=== PATIENT | female | born 1985 | race Caucasian/White ===

== ENCOUNTER 2017-12-30 18:33 | Emergency (ER) | payer MEDICAID ==
[2016-05-04 16:13] VITALS: Ht 177.8 cm; Wt 121.6 kg
[~2017-12-30] VITALS: Ht 177.8 cm; Wt 121.6 kg
[~2017-12-30 18:33] MED LIST: ACE3 PO; AMO500 PO; AMOX-362 PO; AMOX-559 PO; BENZ200C38 PO; CALC-515 PO; CEP500 PO; CEPH500T7 PO; FLU20 PO; GUALA600 PO; HYDR-2954 PO; HYDR-4309 PO; IBU600 PO; IBUP600T22 PO; Ibuprofen PO; KET10 PO; LOR5/325 PO; MEDR150D IM; MET2 PO; METHERGINE; NIF10 PO; NO RTN MEDS; ONDA4TAB PO; ONDA4TAB97 PO; ONDA8TAB98 PO; PER PO; PREN-127 PO; PREN-161 PO; PREN-85 PO; TRAZ-133 PO
--- NOTE | 2017-12-30 18:47 | ER Report ---
History and Physical Time Seen By MD: 18:47 Hx. of Stated Complaint: PT REPORTS NAUSEA PAST 2 DAYS, REPORS DIZZINESS THAT STARTED ~20MINS AGO, PT STATES SHE FELT LIKE SHE WAS GOING TO PASS OUT. PT 32 WKS HPI/ROS CHIEF COMPLAINT: dizziness HISTORY OF PRESENT ILLNESS: This is a 32 year old female. She is about 32 weeks along with her . No problems with the . She is dizzy and has been nauseated for 2 days. The dizziness is not a near syncope or vertigo, but more of feeling off balance. Dizziness started today, about 20 minutes ago. She did not feel like she was going to pass out, but felt like she might fall over if she was not holding onto something. She has no headache. No vision changes. No chest pain. No shortness of breath. Her bowel are normal. No problems urinating. Has nausea, but no vomiting. She continues to feel baby moving and has no leakage of fluid, vaginal bleeding or cramping pain. Allergies: Coded Allergies: No Known Drug Allergies (Unverified , 09/04/17) Uncoded Allergies: CAT BACTERIA (Allergy, Unknown, 08/04/16) "CAT SCRATCH FEVER" Home Meds Active Scripts Ondansetron Hcl (ZOFRAN) 4 Mg Tablet, 4 MG PO Q8H for Nausea, #15 TAB 0 Refills Prov:CICI KEN MD 09/04/17 Cephalexin 500 Mg Tab (KEFLEX 500 MG TAB) 500 Mg Tablet, 500 MG PO Q6H, #28 TAB 0 Refills TAKE ONE TABLET BY MOUTH EVERY SIX HOURS Prov:CICI KEN MD 09/04/17 Reviewed Nurses Notes: Yes Hx Smoking: Yes Smoking Status: Former Smoker Exposure to Second Hand Smoke?: No Hx Substance Use Disorder: No Hx Alcohol Use: No Constitutional Vital Sign - Last 24 Hours 12/30/17 12/30/17 18:34 20:40 Temp 97.9 Pulse 83 82 Resp 16 16 B/P (MAP) 125/69 100/59 (73) Pulse Ox 94 92 O2 Delivery Room Air Room Air Physical Exam General Appearance: The patient is alert. No acute distress. Eyes: Pupils are equal, round. Reactive to light. No pallor, injection or icterus. Extraocular movements are intact. ENT: Mucous membranes are moist. Normal oral mucosa. Posterior oropharynx is normal. Normal tympanic membranes and canals. Neck: Supple and non tender. No lymphadenopathy. Respiratory: Breathing easily and unlabored. Lungs are clear to auscultation. Cardiovascular: Regular rate and rhythm. No murmurs, gallops or rubs. Normal capillary refill. Trace ankle edema bilaterally. Gastrointestinal: Abdomen is soft, nontender. Nondistended. Normal active bowel sounds. No costovertebral angle tenderness with percussion. Neurological: Alert and oriented x3. Cranial nerves II through XII show no acute deficits on my exam. No focal neurologic deficits in the extremities. Skin: Warm and dry. DIFFERENTIAL DIAGNOSIS: After history and physical exam, differential diagnosis was considered for dizziness including but not limited to urinary tract infection, orthostatic causes including dehydration, and blood loss. Medical Decision Making Data Points Result Diagram: 12/30/17185112/30/171851 Laboratory Hematology Test 12/30/17 18:52 12/30/17 20:10 Red Blood Count 4.82 M/uL (4.17-5.56) Mean Corpuscular Volume 78.3 fL (80.0-96.0) Mean Corpuscular Hemoglobin 26.5 pg (26.0-33.0) Mean Corpuscular Hemoglobin Concent 33.9 g/dL (32.0-36.0) Red Cell Distribution Width 14.9 % (11.5-14.5) Mean Platelet Volume 8.9 fL (7.2-11.1) Neutrophils (%) (Auto) 75.7 % (39.4-72.5) Lymphocytes (%) (Auto) 15.1 % (17.6-49.6) Monocytes (%) (Auto) 7.5 % (4.1-12.4) Eosinophils (%) (Auto) 1.1 % (0.4-6.7) Basophils (%) (Auto) 0.6 % (0.3-1.4) Nucleated RBC Relative Count (auto) 0.0 /100WBC Neutrophils # (Auto) 8.1 K/uL (2.0-7.4) Lymphocytes # (Auto) 1.6 K/uL (1.3-3.6) Monocytes # (Auto) 0.8 K/uL (0.3-1.0) Eosinophils # (Auto) 0.1 K/uL (0.0-0.5) Basophils # (Auto) 0.1 K/uL (0.0-0.1) Nucleated RBC Absolute Count (auto) 0.01 K/uL Sodium Level 132 mmol/L (137-145) Potassium Level 3.9 mmol/L (3.5-5.0) Chloride Level 100 mmol/L (98-107) Carbon Dioxide Level 23 mmol/L (22-31) Blood Urea Nitrogen 9 mg/dl (7-18) Creatinine 0.70 mg/dl (0.52-1.04) Glomerular Filtration Rate Calc > 60.0 Random Glucose 67 mg/dl (75-110) Calcium Level 8.4 mg/dl (8.4-10.2) Total Bilirubin 0.6 mg/dl (0.2-1.3) Aspartate Amino Transf (AST/SGOT) 16 U/L (0-35) Alanine Aminotransferase (ALT/SGPT) 24 U/L (0-56) Alkaline Phosphatase 101 U/L (0-126) Total Protein 6.7 gm/dl (6.3-8.2) Albumin 3.3 g/dl (3.5-5.0) Urine Color Yellow Urine Clarity Clear Urine pH 6.0 pH (4.8-9.5) Urine Specific [place] 1.006 Urine Protein Negative mg/dL (NEGATIVE) Urine Glucose (UA) Negative mg/dL (NEGATIVE) Urine Ketones Negative mg/dL (NEGATIVE) Urine Blood Negative (NEGATIVE) Urine Nitrite Negative (NEGATIVE) Urine Bilirubin Negative (NEGATIVE) Urine Urobilinogen Negative mg/dL (0.2-1.9) Urine Leukocyte Esterase Moderate (NEGATIVE) Urine RBC 3 /HPF (0-2/HPF) Urine WBC 1 /HPF (0-5/HPF) Urine Squamous Epithelial Cells Many /LPF (</=FEW) Urine Bacteria Few /HPF (NONE-FEW) Urine Mucus None /HPF (NONE-FEW) Chemistry Test 12/30/17 18:52 12/30/17 20:10 White Blood Count 10.7 k/uL (4.5-11.0) Red Blood Count 4.82 M/uL (4.17-5.56) Hemoglobin 12.8 g/dL (12.0-16.0) Hematocrit 37.7 % (34.0-47.0) Mean Corpuscular Volume 78.3 fL (80.0-96.0) Mean Corpuscular Hemoglobin 26.5 pg (26.0-33.0) Mean Corpuscular Hemoglobin Concent 33.9 g/dL (32.0-36.0) Red Cell Distribution Width 14.9 % (11.5-14.5) Platelet Count 117 K/uL (150-450) Mean Platelet Volume 8.9 fL (7.2-11.1) Neutrophils (%) (Auto) 75.7 % (39.4-72.5) Lymphocytes (%) (Auto) 15.1 % (17.6-49.6) Monocytes (%) (Auto) 7.5 % (4.1-12.4) Eosinophils (%) (Auto) 1.1 % (0.4-6.7) Basophils (%) (Auto) 0.6 % (0.3-1.4) Nucleated RBC Relative Count (auto) 0.0 /100WBC Neutrophils # (Auto) 8.1 K/uL (2.0-7.4) Lymphocytes # (Auto) 1.6 K/uL (1.3-3.6) Monocytes # (Auto) 0.8 K/uL (0.3-1.0) Eosinophils # (Auto) 0.1 K/uL (0.0-0.5) Basophils # (Auto) 0.1 K/uL (0.0-0.1) Nucleated RBC Absolute Count (auto) 0.01 K/uL Glomerular Filtration Rate Calc > 60.0 Calcium Level 8.4 mg/dl (8.4-10.2) Total Bilirubin 0.6 mg/dl (0.2-1.3) Aspartate Amino Transf (AST/SGOT) 16 U/L (0-35) Alanine Aminotransferase (ALT/SGPT) 24 U/L (0-56) Alkaline Phosphatase 101 U/L (0-126) Total Protein 6.7 gm/dl (6.3-8.2) Albumin 3.3 g/dl (3.5-5.0) Urine Color Yellow Urine Clarity Clear Urine pH 6.0 pH (4.8-9.5) Urine Specific [place] 1.006 Urine Protein Negative mg/dL (NEGATIVE) Urine Glucose (UA) Negative mg/dL (NEGATIVE) Urine Ketones Negative mg/dL (NEGATIVE) Urine Blood Negative (NEGATIVE) Urine Nitrite Negative (NEGATIVE) Urine Bilirubin Negative (NEGATIVE) Urine Urobilinogen Negative mg/dL (0.2-1.9) Urine Leukocyte Esterase Moderate (NEGATIVE) Urine RBC 3 /HPF (0-2/HPF) Urine WBC 1 /HPF (0-5/HPF) Urine Squamous Epithelial Cells Many /LPF (</=FEW) Urine Bacteria Few /HPF (NONE-FEW) Urine Mucus None /HPF (NONE-FEW) Urinalysis Test 12/30/17 20:10 Urine Color Yellow Urine Clarity Clear Urine pH 6.0 pH (4.8-9.5) Urine Specific [place] 1.006 Urine Protein Negative mg/dL (NEGATIVE) Urine Glucose (UA) Negative mg/dL (NEGATIVE) Urine Ketones Negative mg/dL (NEGATIVE) Urine Blood Negative (NEGATIVE) Urine Nitrite Negative (NEGATIVE) Urine Bilirubin Negative (NEGATIVE) Urine Urobilinogen Negative mg/dL (0.2-1.9) Urine Leukocyte Esterase Moderate (NEGATIVE) Urine RBC 3 /HPF (0-2/HPF) Urine WBC 1 /HPF (0-5/HPF) Urine Squamous Epithelial Cells Many /LPF (</=FEW) Urine Bacteria Few /HPF (NONE-FEW) Urine Mucus None /HPF (NONE-FEW) EKG/Imaging EKG Interpretation 12 lead EKG: Rhythm: normal sinus rhythm, rate 79 [place]: normal QRS: normal ST segments: normal ED Course/Re-evaluation Clinical Indication for ER IV: Hydration, IV Access ED Course heart tones 155 and baby is moving. labs unremarkable. Urinalysis with some non-specific changes, urine culture ordered. Patient feels better with a liter of normal saline. Normal vital signs. No proteinuria. No headache. Discussed with Dr. Sandhu. Patient discharged home and has an appointment on Monday with her [facility] L[facility]ER. Decision to Disposition Date: Dec 30, 2017 Decision to Disposition Time: 20:35 Depart Departure Latest Vital Signs Vital Signs Date Time Temp Pulse Resp B/P (MAP) Pulse Ox O2 Delivery O2 Flow Rate FiO2 12/30/17 20:40 82 16 100/59 (73) 92 Room Air 12/30/17 18:34 97.9 Impression: Primary Impression: Dizziness Condition: Improved Disposition: HOME OR SELF-CARE Patient Instructions: Dizziness (ED) Additional Instructions: Rest and increase fluid intake over the weekend. Keep you appointment on Monday with [facility] L[facility]ER. YEN GREENFIELD MD Dec 30, 2017 18:47
[2017-12-30] MEDS ORDERED: NS(*) 0.9% 1000 ML BAG 1,000 ML IV ONE (19:00)
[2017-12-30] MEDS ORDERED: ONDANSETRON 4 MG/2 ML VIAL IVP ONE (19:00)
[2017-12-30 19:16] LABS: PLATELET COUNT, AUTOMATED 117 K/uL (150-450)
[2017-12-30 20:40] VITALS: BP 100/59
--- NOTE | 2017-12-30 22:34 | EKG ---
FACILITY: [facility] [place] PATIENT NAME: DANIELLE VALENCIA : [id number] MR: [id number] V: [id number] EXAM DATE: ORDERING PHYSICIAN: YEN GREENFIELD TECHNOLOGIST: COLEEN Test Reason : DIZZY Blood Pressure : / mmHG Vent. Rate : 079 BPM Atrial Rate : 079 BPM P-R Int : 150 ms QRS Dur : 084 ms QT Int : 376 ms P-R-T Axes : 037 061 016 degrees QTc Int : 431 ms Normal sinus rhythm with sinus arrhythmia Normal ECG When compared with ECG of 04-SEP-2017 08:31, Previous ECG has undetermined rhythm, needs review Confirmed by MANUEL MCCONNELL ([id number]) on 12/31/2017 6:28:35 AM Referred By: SUELLEN Confirmed By:MANUEL MCCONNELL
== END 2017-12-30 20:46 | disposition home or self-care (01) ==
LOC: ER 18:48
DX: O26.893 Other specified pregnancy related conditions, third trimester (principal); Z3A.32 32 weeks gestation of pregnancy; I49.9 Cardiac arrhythmia, unspecified
CPT/HCPCS: 81001; 85025; 87088; 93005; 96361; 96374; 99284; J2405; J7030; 82040; 82247; 82310; 82374; 82435; 82565; 82947; 84075; 84132; 84155; 84295; 84450; 84460; 84520

== ENCOUNTER 2018-01-16 21:17 | Observation (INO) | payer MEDICAID ==
[~2018-01-16] VITALS: Ht 175.3 cm; Wt 121.6 kg
[2018-01-16] MEDS ORDERED: LR(*) 1000 ML BAG 1,000 ML IV PRN (21:21)
[2018-01-16 21:35] VITALS: BP 128/69; Ht 175.3 cm; Wt 121.6 kg
[2018-01-16] MEDS ORDERED: NIFEdipine 10 MG CAP PO PRN (22:20)
[2018-01-16] MEDS ORDERED: ACETAMINOPHEN 325 MG TAB PO PRN (22:20)
--- NOTE | 2018-01-16 22:31 | History & Physical ---
History of Present Illness Age of Patient: 32 : 9 Para or TPAL: 5 EDC per LMP: Feb 23, 2018 Estimated Gestational Age: 34.4 Chief Complaint contractions History of Present Illness The patient is a 32 year old 9 para 5 admitted at 34 4/7 weeks estimated gestational age with an estimated date of delivery 02/23 . Patient is admitted with complaint of contractions. No vaginal bleeding. Good movement and occasional contractions. She was evaluated for active labor. She denies fever, or urinary tract symptoms. She had an uncomplicated course prior to arrival. She has history of PTD. Her record was reviewed. History Allergies: Coded Allergies: No Known Drug Allergies (Unverified , 09/04/17) Uncoded Allergies: CAT BACTERIA (Allergy, Unknown, 08/04/16) "CAT SCRATCH FEVER" Social History: Unmarried but in monogamous relationship. No use of alcohol, tobacco, or illicit drugs. Med Rec Home Meds Active Scripts Ondansetron Hcl (ZOFRAN) 4 Mg Tablet, 4 MG PO Q8H for Nausea, #15 TAB 0 Refills Prov:CICI KEN MD 09/04/17 Cephalexin 500 Mg Tab (KEFLEX 500 MG TAB) 500 Mg Tablet, 500 MG PO Q6H, #28 TAB 0 Refills TAKE ONE TABLET BY MOUTH EVERY SIX HOURS Prov:CICI KEN MD 09/04/17 Review of Systems Constitutional: No Fever, No Weight Loss Neurological: No Syncope, No Confusion Eyes: No Vision Change, No Loss of Vision ENT: No Hearing Loss, No Sinus Congestion Cardiovascular: No Chest Pain, No Palpitations Respiratory: No Shortness of Breath, No Cough Gastrointestinal: No Nausea, No Vomiting Genitourinary: No Dysuria, No Hematuria Musculoskeletal: No Pain, No Sprain Psychiatric: No Depression, No Anxiety Exam General Exam Vital Signs Vital Signs Date Time Temp Pulse Resp B/P (MAP) Pulse Ox O2 Delivery O2 Flow Rate FiO2 01/16/18 21:35 97.9 81 16 128/69 (88) 94 Room Air General Apperance: Alert/Awake/No Acute Distress Neuro: No Gross deficits Eyes: Normal Extraocular Movement & Vison ENT: Normal Cardiovascular: Regular Rate and Rhythm Respiratory: Clear to Auscultation Abdomen: Soft, Non-Tender, Non-Distended, Gravid - Non-Tender Musculoskeletal: No Weakness/Pain Extremities: No Cyanosis,Clubbing or Edema, No Edema Integumentary: Skin Intact without Lesions or Rash Cervical Dialation: 2 Cervical Effacement (%): 50 Cervical Consistency: Moderate Cervical Position: Mid Station: -2 Presentation: Vertex Uterine Contractions(Q min): 4 Uterine Contraction Strength: Mild Fetus Heart Tones: 130 Heart Tone Variabilty: Moderate FHT Accelerations: 15X15 FHT Category: I Assessment and Plan Problems: (1) Threatened labor Status: Acute Assessment & Plan: will check FFn and monitor for cervical change. Will start procardia to see if able to slow frequency of contractions Copies to: MANUEL FLEMING MD Problem Qualifiers (1) Threatened labor: Trimester: third trimester Qualified Codes: O47.03 - False labor before 37 completed weeks of gestation, third trimester MANUEL FLEMING MD Jan 16, 2018 22:31
== END 2018-01-17 04:00 | disposition home or self-care (01) ==
LOC: OB 21:17
PROVIDERS: ADMIT Obstetrics & Gynecology; ATTEND Obstetrics & Gynecology
DX: O47.03 False labor before 37 completed weeks of gestation, third trimester (principal); Z3A.34 34 weeks gestation of pregnancy
CPT/HCPCS: 82731; G0378; G0379

== ENCOUNTER 2018-01-25 21:45 | Outpatient (CLI) | payer MEDICAID ==
[2018-01-16 21:35] VITALS: BMI 39.6
[2018-01-25] MEDS ORDERED: LR(*) 1000 ML BAG 1,000 ML IV PRN (21:49)
[2018-01-25] MEDS ORDERED: DLR(*) 1000 ML BAG 1,000 ML IV PRN (21:49)
[2018-01-25] MEDS ORDERED: ACET-1966 PO (22:51)
[2018-01-25] MEDS ORDERED: APAP/HYDROCODONE 325/5 TAB PO ONE (23:10)
== END 2018-01-25 23:45 | disposition home or self-care (01) ==
LOC: L&D 21:45 → OB 21:45 → UNDOADMIN 21:45 → OB 21:45 → UNDODISIN 23:45 → L&D 23:45 → EDSTATUS 01-26 13:01
PROVIDERS: ATTEND Student in an Organized Health Care Education/Training Program
DX: O26.893 Other specified pregnancy related conditions, third trimester (principal); Z3A.35 35 weeks gestation of pregnancy
CPT/HCPCS: 81001

== ENCOUNTER 2018-01-29 20:55 | Outpatient (CLI) | payer MEDICAID ==
[~2018-01-29] VITALS: Ht 177.8 cm; Wt 124.3 kg
[2018-01-29 18:00] VITALS: BP 129/67; Ht 177.8 cm; Wt 124.3 kg
[~2018-01-29 20:55] MED LIST changes: +ACET-1966 PO
[2018-01-29] MEDS ORDERED: LR(*) 1000 ML BAG 1,000 ML IV PRN (21:06)
== END 2018-01-29 22:28 | disposition home or self-care (01) ==
LOC: OB 20:55 → L&D 20:55 → OB 20:55 → UNDOADMOB 20:55 → UNDODISOB 22:28 → L&D 22:28 → EDSTATUS 02-02 08:34
PROVIDERS: ATTEND Student in an Organized Health Care Education/Training Program
DX: O47.03 False labor before 37 completed weeks of gestation, third trimester (principal); Z3A.36 36 weeks gestation of pregnancy
CPT/HCPCS: 99213; G0378; G0379

== ENCOUNTER 2018-01-31 16:04 | Outpatient (CLI) | payer MEDICAID ==
[2018-01-16 21:35] VITALS: Wt 122.5 kg
[2018-01-31] MEDS ORDERED: LR(*) 1000 ML BAG 1,000 ML IV PRN (16:54)
[2018-01-31 17:12] VITALS: BP 131/75
[2018-01-31] MEDS ORDERED: ACETAMINOPHEN 500 MG TAB PO PRN (17:15)
[2018-01-31 17:25] LABS: PLATELET COUNT, AUTOMATED 129 K/uL (150-450)
--- NOTE | 2018-01-31 18:38 | History & Physical ---
History of Present Illness Age of Patient: 32 : 9 Para or TPAL: 5035 EDC per LMP: Feb 23, 2018 Estimated Gestational Age: 36.5 Chief Complaint contractions History of Present Illness The patient is a 32 year old 9 para 5035 admitted at 36 5/7 weeks estimated gestational age with an estimated date of delivery 02/23/18 . Patient is admitted with complaint of contractions. No vaginal bleeding. Good movement and occasional contractions. She was evaluated for active labor. She had an uncomplicated course. Her record was reviewed. History Allergies: Coded Allergies: No Known Drug Allergies (Unverified , 09/04/17) Uncoded Allergies: CAT BACTERIA (Allergy, Unknown, 08/04/16) "CAT SCRATCH FEVER" Social History: Unmarried but in monogamous relationship. No use of alcohol, tobacco, or illicit drugs. Med Rec Home Meds Reported Medications Acetaminophen (TYLENOL) 325 Mg Tablet, 325 MG PO, TAB 01/25/18 Discontinued Scripts Ondansetron Hcl (ZOFRAN) 4 Mg Tablet, 4 MG PO Q8H for Nausea, #15 TAB 0 Refills Prov:CICI KEN MD 09/04/17 Cephalexin 500 Mg Tab (KEFLEX 500 MG TAB) 500 Mg Tablet, 500 MG PO Q6H, #28 TAB 0 Refills TAKE ONE TABLET BY MOUTH EVERY SIX HOURS Prov:CICI KEN MD 09/04/17 Review of Systems Constitutional: No Fever, No Weight Loss Neurological: No Syncope, No Confusion Eyes: No Vision Change, No Loss of Vision ENT: No Hearing Loss, No Sinus Congestion Cardiovascular: No Chest Pain, No Palpitations Respiratory: No Shortness of Breath Gastrointestinal: No Nausea, No Vomiting, No Diarrhea Genitourinary: No Dysuria, No Hematuria Musculoskeletal: No Pain, No Sprain Psychiatric: No Depression, No Anxiety Exam General Exam Vital Signs Vital Signs Date Time Temp Pulse Resp B/P (MAP) Pulse Ox O2 Delivery O2 Flow Rate FiO2 01/31/18 17:12 97.4 102 22 131/75 (93) 95 Room Air Cardiovascular: Regular Rate and Rhythm Respiratory: Clear to Auscultation Abdomen: Gravid - Non-Tender Extremities: No Edema Cervical Dialation: 3 (rn) Presentation: Vertex Uterine Contractions(Q min): 10 Fetus Heart Tones: 130 FHT Category: I Medical Decision Making Data Points Result Diagram: 01/31/18 1700 Assessment and Plan Problems: (1) Threatened labor Assessment & Plan: feeling pressure and contractions, no cervical change will continue observation possible latent labor Copies to: MANUEL FLEMING MD, JOHN MD Jan 31, 2018 18:38
== END 2018-01-31 20:38 | disposition home or self-care (01) ==
LOC: OB 16:04 → UNDOADMOB 16:04 → OB 16:04 → L&D 16:04 → UNDODISOB 20:38 → OB 20:38 → L&D 20:38 → EDSTATUS 02-01 11:39
PROVIDERS: ATTEND Obstetrics & Gynecology
DX: O47.03 False labor before 37 completed weeks of gestation, third trimester (principal); Z3A.36 36 weeks gestation of pregnancy
CPT/HCPCS: 81001; 85025; G0463; J7120; 99213; G0378; G0379

== ENCOUNTER 2018-02-07 18:57 | Observation (INO) | payer MEDICAID ==
[~2018-02-07] VITALS: Ht 177.8 cm; Wt 124.3 kg
[2018-02-07 20:30] VITALS: BP 116/75; Ht 177.8 cm; Wt 124.3 kg
--- NOTE | 2018-02-07 21:31 | History & Physical ---
History of Present Illness Age of Patient: 32 : 9 Para or TPAL: 5035 EDC per LMP: Feb 23, 2018 EDC per U/S: Feb 24, 2018 Estimated Gestational Age: 37.5 Chief Complaint Low back pain. History of Present Illness Patient is seen on the OB unit due to sudden onset of severe bilateral low back pain that started suddenly at about 0900 hours this morning, while she was standing from a sitting position. The pain is a constant, non-radiating dull pain that is occasionally sharp. No relief with application of heat. Her back was too sore to allow her partner to massage it. She denies fever, chills, constipation, diarrhea, melena, hematuria, dysuria, urinary urgency or frequency. She as had several recent bloody bowel movements, but is unsure whether she has hemorrhoids. Fetus remains active. History Patient's Blood Type: AB Positive Rubella Status: Immune Group B Strep Screen: Negative (01/16/18) Obstetrical History: Hx 5 normal term deliveries, also 2 first trimester spontaneous abortions and one early elective . Past Medical History: Eczema. Umbilical herniorrhaphy. Allergies: Coded Allergies: No Known Drug Allergies (Unverified , 09/04/17) Uncoded Allergies: CAT BACTERIA (Allergy, Unknown, 08/04/16) "CAT SCRATCH FEVER" Social History: Unmarried but in monogamous relationship. No use of alcohol, tobacco, or illicit drugs. Med Rec Home Meds Discontinued Reported Medications Acetaminophen (TYLENOL) 325 Mg Tablet, 325 MG PO, TAB 01/25/18 Review of Systems All Systems Reviewed/Normal: Yes, Except as Noted Musculoskeletal: Other (back pain as per present illness) Exam General Exam Vital Signs Vital Signs Date Time Temp Pulse Resp B/P (MAP) Pulse Ox O2 Delivery O2 Flow Rate FiO2 02/07/18 20:30 97.4 110 16 116/75 (89) 95 Room Air General Apperance: Other (lying in bed in distress from back pain) Neuro: No Gross deficits ENT: Normal, Moist Mucous Membranes Neck: No Masses Cardiovascular: Regular Rate and Rhythm Respiratory: No Respiratory Distress, Clear to Auscultation Abdomen: Gravid - Non-Tender : No CVA Tenderness Musculoskeletal: No Weakness/Pain, Other (back nontender, except for mild- moderate tenderness to palpation in midline and bilateral upper buttock regions) Extremities: Reflexes (2+/4 and symmetric), No Tender Calves Integumentary: Skin Intact without Lesions or Rash Psychological: Alert & Oriented X3 Fetus Heart Tones: 140 FHT Category: I Medical Decision Making VTE Prophylasis: Adult Pharmacological Contraindicati: Pt at Low Risk for VTE Mechanical Contraindications: Pt at Low Risk for VTE Assessment and Plan Problems: (1) Low back pain during in third trimester Status: Acute Assessment & Plan: I strongly recommended retrying application of heat, also massage and Tylenol. If she's not improving, then referral to Physical Therapy might be indicated. Her next office appointment is scheduled February 20, but she is urged to make an appointment earlier, in 5 to 7 days. (2) with 37 weeks completed gestation Status: Acute Copies to: NASIMA CURRY MD, MARK F MD Feb 07, 2018 21:31
== END 2018-02-07 21:38 | disposition home or self-care (01) ==
LOC: OB 18:57
PROVIDERS: ADMIT Obstetrics & Gynecology; ATTEND Obstetrics & Gynecology
DX: O26.893 Other specified pregnancy related conditions, third trimester (principal); Z3A.37 37 weeks gestation of pregnancy
CPT/HCPCS: 81001; G0378; G0379

== ENCOUNTER 2018-02-18 20:43 | Outpatient (CLI) | payer MEDICAID ==
[~2018-02-18] VITALS: Ht 177.8 cm; Wt 124.3 kg
[2018-02-18] MEDS ORDERED: FAMOTIDINE 20 MG TAB PO ONE (21:25)
[2018-02-18] MEDS ORDERED: METOCLOPRAMIDE 10 MG TAB PO ONE (21:25)
[2018-02-18] MEDS ORDERED: MAG HYD/AL HYD/SIMETH 30ML UDC PO ONE (21:25)
[2018-02-18 21:30] VITALS: BP 130/73; Ht 177.8 cm; Wt 124.3 kg
[2018-02-18] MEDS ORDERED: ONDANSETRON 4 MG ODT TABDP SL ONE (22:15)
[2018-02-18] MEDS ORDERED: PROMETHAZINE HCL 25 MG TAB PO ONE (23:00)
== END 2018-02-18 23:05 | disposition home or self-care (01) ==
LOC: INTOOBSV 20:43 → OB 20:43 → UNDOADMOB 20:43 → L&D 20:43 → UNDODISOB 23:05 → EDSTATUS 02-19 11:26
PROVIDERS: ATTEND Obstetrics & Gynecology
DX: O26.893 Other specified pregnancy related conditions, third trimester (principal); Z3A.39 39 weeks gestation of pregnancy
CPT/HCPCS: G0463; J8597; 99213; G0378; G0379

== ENCOUNTER 2018-02-22 05:18 | Inpatient (IN) | payer MEDICAID ==
[~2018-02-22] VITALS: Ht 177.8 cm; Wt 122.5 kg
[2018-02-22] MEDS ORDERED: FAMOTIDINE(*) 20MG/50ML PREMIX 50 ML IVPB PRN (05:21)
[2018-02-22] MEDS ORDERED: OXYTOCIN 30 UNIT/D5LR 500 ML 500 ML IV PRN (05:21)
[2018-02-22] MEDS ORDERED: METOCLOPRAMIDE 10 MG/2 ML SDV IVP PRN (05:25)
[2018-02-22] MEDS ORDERED: LIDOCAINE 1% LOCAL 300 MG/30ML INJ PRN (05:25)
[2018-02-22] MEDS ORDERED: ONDANSETRON 4 MG/2 ML VIAL IVP PRN ×2 (05:25→08:05)
[2018-02-22] MEDS ORDERED: LR(*) 1000 ML BAG 1,000 ML IV SCH (05:25)
[2018-02-22] MEDS ORDERED: MISOPROSTOL 25 MCG CAP PV PRN (05:25)
[2018-02-22] MEDS ORDERED: FLUSH 10 ML SYR IVP PRN (05:25)
[2018-02-22] MEDS ORDERED: DLR(*) 1000 ML BAG 1,000 ML IV PRN (05:25)
[2018-02-22] MEDS ORDERED: fentaNYL CITR 100 MCG/2 ML AMP IVP PRN (05:25)
[2018-02-22] MEDS ORDERED: TERBUTALINE SULF 1 MG/ML VIAL SUBQ PRN (05:25)
[2018-02-22] MEDS ORDERED: LIDOCAINE/SOD BICARB 8.4% SYR SC PRN (05:25)
[2018-02-22] MEDS ORDERED: ACETAMINOPHEN 500 MG TAB PO PRN (05:25)
[2018-02-22] MEDS ORDERED: cefOXitin/DEX(*) 2GM/50ML PREM 50 ML IVPB PRN (05:25)
[2018-02-22 06:11] VITALS: BP 118/69; Ht 177.8 cm; Wt 122.5 kg
[2018-02-22] MEDS ORDERED: PENICILLIN G 5 MILLUN/100 ML 100 ML IVPB ONE (06:35)
[2018-02-22 06:44] LABS: PLATELET COUNT, AUTOMATED 147 K/uL (150-450)
--- NOTE | 2018-02-22 07:42 | History & Physical ---
History of Present Illness Age of Patient: 32 : 9 Para or TPAL: 5035 EDC per LMP: Feb 23, 2018 EDC per U/S: Feb 26, 2018 Estimated Gestational Age: 39.6 Chief Complaint Elective induction of labor. History of Present Illness Admitted at term for elective induction of labor. has been complicated by low back pain the last few weeks of , treated conservatively with Tylenol, heat, and massage. She's also had a couple of visits to the hospital for false labor. Only other risk factor is maternal obesity. Oxytocin rate is presently at 6 milliunits/minute, with contractions Q 3 minutes, and pain 3-4/10. record is reviewed. History Patient's Blood Type: AB Positive Rubella Status: Immune Group B Strep Screen: Negative (01/16/18) Obstetrical History: 5 past uncomplicated vaginal deliveries between 37 and 39 weeks, although labor at 30 weeks with delivery at 37 weeks with the 7th . Spontaneous x2, and elective x1 at 10 weeks. Past Medical History: Hayfever, eczema. Umbilical hernia repair age 5. No transfusions. Allergies: Coded Allergies: No Known Drug Allergies (Unverified , 09/04/17) Uncoded Allergies: CAT BACTERIA (Allergy, Unknown, 08/04/16) "CAT SCRATCH FEVER" Social History: Unmarried but in monogamous relationship. No use of alcohol, tobacco, or illicit drugs. Med Rec Home Meds No Active Prescriptions or Reported Meds Exam General Exam Vital Signs Vital Signs Date Time Temp Pulse Resp B/P (MAP) Pulse Ox O2 Delivery O2 Flow Rate FiO2 02/22/18 06:11 97.8 87 16 118/69 (85) 95 Room Air General Apperance: Alert/Awake/No Acute Distress Neuro: No Gross deficits Eyes: Normal Extraocular Movement & Vison ENT: Normal, Moist Mucous Membranes Neck: No Masses Cardiovascular: Regular Rate and Rhythm Respiratory: No Respiratory Distress, Clear to Auscultation Abdomen: Gravid - Non-Tender : Normal, No CVA Tenderness Musculoskeletal: No Weakness/Pain Extremities: No Cyanosis,Clubbing or Edema, Reflexes (2+/4 and symmetric) Integumentary: Skin Intact without Lesions or Rash Psychological: Alert & Oriented X3, Appropriate Mood & Affect Cervical Dialation: 3.5 (per RN at 0550 hours) Cervical Effacement (%): 50 Station: -2 Presentation: Vertex Fetus Heart Tones: 130 FHT Category: I Medical Decision Making Data Points Result Diagram: 02/22/18 0605 VTE Prophylasis: Adult Pharmacological Contraindicati: Pt at Low Risk for VTE Mechanical Contraindications: Pt at Low Risk for VTE Assessment and Plan Problems: (1) Elective induction of labor planned Assessment & Plan: Continue IV Oxytocin. Will perform amniotomy when there is more cervical change. She is interested in an epidural anesthetic when pain becomes worse. (2) with 39 completed weeks gestation Copies to: NASIMA CURRY MD, MARK F MD Feb 22, 2018 07:42
[2018-02-22] MEDS ORDERED: FENTANYL/ROPIVACAINE 100 ML BAG EPI PRN (08:05)
[2018-02-22] MEDS ORDERED: ePHEDrine 25 MG/5 ML DISP.SYR IVP PRN (08:05)
[2018-02-22] MEDS ORDERED: EPIDURAL KEYS XX PRN (08:05)
[2018-02-22] MEDS ORDERED: LIDOCAINE/PF 2% 200MG/10ML AMP 200 MG/10 ML AMPUL EPI PRN (08:05)
[2018-02-22] MEDS ORDERED: BUPIVACAINE 0.25% MPF INJ EPI PRN (08:05)
[2018-02-22] MEDS ORDERED: BUPIVACAINE 0.5% INJ 30ML VIAL EPI PRN (08:05)
[2018-02-22] MEDS ORDERED: LIDO/EPI 2% MPF 1:200,000 20ML EPI PRN (08:05)
[2018-02-22] MEDS ORDERED: fentaNYL CITR 100 MCG/2 ML AMP IT PRN (08:05)
--- NOTE | 2018-02-22 08:33 | Labor Progress Note ---
Labor Subjective Progress Notes Subjective Oxytocin at 8 milliunits/minute, with contractions Q 2-3 minutes, now a little more painful. Labor Objective Vital Signs Vital Signs Date Time Temp Pulse Resp B/P (MAP) Pulse Ox O2 Delivery O2 Flow Rate FiO2 02/22/18 06:11 97.8 87 16 118/69 (85) 95 Room Air Cervical Dialation: 4 Cervical Effacement (%): 50 Station: -2 Presentation: Vertex Fetus Heart Tones: 130 FHT Category: I Other Result Diagram: 02/22/18 0605 Assessment and Plan Problems: (1) Elective induction of labor planned Assessment & Plan: Minimal progress in labor. Will continue IV Oxytocin. Probable amniotomy in a few hours. Epidural anesthesia when patient is ready. (2) with 39 completed weeks gestation NASIMA CURRY MD Feb 22, 2018 08:33
[2018-02-22] MEDS ORDERED: ceFAZolin(*) 2GM/D5W 50ML 50 ML IVPB PRN (09:06)
[2018-02-22] MEDS: PENICILLIN G 2.5 MILLUN/100 ML 100 ML IVPB SCH ×2 (10:21→14:36)
--- NOTE | 2018-02-22 12:34 | Labor Progress Note ---
Labor Subjective Progress Notes Subjective Oxytocin rate at 10 milliunits/minute, with contractions Q 2-3 minutes. Comfortable with epidural, which was placed when pain timo to 5-6/10. Labor Objective Vital Signs Vital Signs Date Time Temp Pulse Resp B/P (MAP) Pulse Ox O2 Delivery O2 Flow Rate FiO2 02/22/18 06:11 97.8 87 16 118/69 (85) 95 Room Air Cervical Dialation: 4.5 Cervical Effacement (%): 70 Cervical Consistency: Moderate Cervical Position: Mid Station: -2 Presentation: Vertex Fetus Heart Tones: 130 FHT Category: I Other Result Diagram: 02/22/18 0605 Assessment and Plan Problems: (1) Elective induction of labor planned Assessment & Plan: Starting to progress in labor. Amniotomy done, with return of clear fluid. Continue Oxytocin. (2) with 39 completed weeks gestation NASIMA CURRY MD Feb 22, 2018 12:34
[2018-02-22] MEDS ORDERED: BENZOCAINE 20% 60 ML BTL TP PRN (15:45)
[2018-02-22] MEDS ORDERED: GLYCERIN/WITCH HAZEL LEAF 1 PK TP PRN (15:45)
[2018-02-22] MEDS ORDERED: LANOLIN OINT 7 GM TUBE TP PRN (15:45)
[2018-02-22] MEDS ORDERED: ACETAMINOPHEN 325 MG TAB PO PRN (15:45)
[2018-02-22] MEDS ORDERED: HYDROmorphone HCL 2 MG TAB PO PRN (15:45)
--- NOTE | 2018-02-22 15:52 | OB Delivery Note ---
Delivery Note Vaginal Delivery Type: Spont. Vaginal Delivery Delivery Date: Feb 22, 2018 Delivery Time: 15:22 Estimated Gestational Age(wks): 39 6/7 Length of Labor Stage I (hrs): 2.43 Length of Labor Stage II (hrs): 0.15 Labor Stage III (minutes): 7 Delivery Anesthesia: Epidural Sex: Female Infant Weight (gms): 3122 (6# 14.0 oz) [place] Apgars: 1 Minute (8), 5 Minute (9) Repair Needed: Other (None) Estimated Blood Loss: 400 (slightly less than average ) Notes: Spontaneous controlled vaginal delivery of a healthy female . Placenta delivered spontaneously and intact, appears normal. No lacerations, no complications. Log Sorter in Attendence: No Copies to: NASIMA CURRY MD, MARK F MD Feb 22, 2018 15:52
[2018-02-22] MEDS: IBUPROFEN 800 MG TAB PO SCH (17:15)
[2018-02-22 19:00] VITALS: BP 122/68
[2018-02-22 19:30] VITALS: BP 120/63
[2018-02-22] MEDS: DOCUSATE CALCIUM 240 MG CAP PO SCH (21:25)
[2018-02-22 23:00] VITALS: BP 127/63
[2018-02-23] MEDS: IBUPROFEN 800 MG TAB PO SCH ×3 (01:09→17:01)
[2018-02-23 03:15] VITALS: BP 117/68
--- NOTE | 2018-02-23 06:04 | Anesthesia OB Pre-Anes Eval ---
History of Present Illness Anesthesia Start Date: Feb 22, 2018 Anesthesia Start Time: 11:00 OB Anesthesia Diagnosis: induction - elective EDC: Feb 23, 2018 : 9 Para: 54 Pain Ratin Result Diagram: 02/22/18 0605 Height (Inches): 70.00 Weight (Pounds): 270 BMI Calculated: 38.74 Past Medical History Medical History: no pertinent history, obesity Surgical History: noncontributory Previous Anesthesia: general, epidural Attended Childbirth Classes?: No Hx Anesthesia Reactions: No Hx Family Anesthesia Reaction: No Home Meds No Active Prescriptions or Reported Meds Allergies: Coded Allergies: No Known Drug Allergies (Unverified , 09/04/17) Uncoded Allergies: CAT BACTERIA (Allergy, Unknown, 08/04/16) "CAT SCRATCH FEVER" Anesthesia OB ROS Airway Class: l GI ROS: clear liquids, ice chips Last Solids Date: Feb 21, 2018 Last Solids Time: 22:00 ASA Classification: 2 Assessment and Plan Anesthesia Plan: LEB Anesthesia Stop Day: Feb 22, 2018 Anesthesia Stop Time: 15:40 Epidural Catheter Removal: Removed Catheter Intact, Yes, Removed by: (Nam Scruggs CRNA) Removal Date: Feb 22, 2018 Removal Time: 15:40 CICI SCRUGGS CRNA Feb 22, 2018 11:35
--- NOTE | 2018-02-23 06:05 | Procedure Note ---
Anesthetic Placement Note Anesthesia Plan: LEB Permit for Anesthesia Signed: Yes Anesthesia Technique: Patient Sitting Anesthesia Prep: Betadine Interspace: L 3-4 Local Anesthetic: 1% Lidocaine, 25 Gauge Needle Amount Local - cc's: 3 Anesthesia Needle: 17g Touhy/Schliff Anesthesia Attempts: 1 Loss of Resistance: Normal Saline Depth of JUAN A (cm): 7 Catheter Insertion (cm): 6 Catheter Type: Culver - Spring Wound Epidural Dressing: Tegaderm, Tape, Adhesive Baudette Anesthesia Tray: Lot Number ([id number]), Expiration Date (2018-09-26), Reference Number ([id number]) Anesthesia Medications: Epidural Test Dose: 1.5 Lido/Epi (1:200,000), Dose - mL (3), Time (1113), Negative Epidural Loading Dose: 0.2% Ropivicaine, With Fentanyl 2mcg/ml, Dose - ml (15) , Time (1117), Other (in 5 ml increments) Epidural Infusion: 0.2% Ropivicaine, With Fentanyl 2mcg/ml, Start Time: (1125) Epidural Pump Setting: Bolus Dose - mL (4), Lockout - Minutes (15), Maintenance Rate - mL/hr (8), Maximum per Hour - mL (24) Complications: None CICI SCRUGGS CRNA Feb 22, 2018 11:34
--- NOTE | 2018-02-23 06:58 | Anesthesia Post Eval Note ---
Anesthesia Post Eval Note Stable, afebrile. Pt able to participate in Eval: Yes Cardiovascular Status: Satisfactory Respiratory Status: Satisfactory Pain Managment: Satisfactory PO Nausea/Vomiting: Satisfactory Temperature Management: Satisfactory Mental Status: Satisfactory, Alert, Oriented X3 Post-Op Hydration Status: Satisfactory, Tolerating PO Well, Voiding w/o Difficulty Anesthesia Type: LEB Anesthesia Tolerance: Ambulatory without S/S PDPH, no complications. CICI SCRUGGS ACID DIPPER Feb 23, 2018 06:58
--- NOTE | 2018-02-23 07:40 | OB/GYN Progress Note ---
OB Subjective Progress Notes Subjective Feels OK, wants to go home later today. Ambulating and voiding well. Moderate lochia, decreasing. Little labial/perineal pain. Baby doing well, is formula- fed. OB Objective Physical Exam Vital Signs Date Time Temp Pulse Resp B/P (MAP) Pulse Ox O2 Delivery O2 Flow Rate FiO2 02/23/18 03:15 97.1 74 16 117/68 (84) Room Air 02/22/18 23:00 94 General Appearance: Alert/Awake/No Acute Distress Cardiovascular: Regular Rate and Rhythm Respiratory: No Respiratory Distress, Clear to Auscultation Abdomen: Soft, Non-Tender, Non-Distended, Bowel Sounds Present, Fundus Firm ( at U) Extremities: No Cyanosis,Clubbing or Edema, No Tender Calves Psychological: Alert & Oriented X3, Appropriate Mood & Affect Result Diagram: 02/23/18 0550 Assessment and Plan Problems: (1) Encounter for care and examination of mother immediately after delivery Status: Acute Assessment & Plan: Doing well, appears ready for discharge later today. (2) Elective induction of labor planned Status: Resolved (3) with 39 completed weeks gestation Status: Resolved NASIMA CURRY MD Feb 23, 2018 07:40
[2018-02-23] MEDS ORDERED: IBUP800T37 PO (07:44)
--- NOTE | 2018-02-23 07:47 | OB/GYN Discharge Summary ---
Discharge Summary Reason for Hosp/Final Diag: (1) Encounter for care and examination of mother immediately after delivery Status: Acute Hospital Course & Plan: After induced labor with normal vaginal of a healthy female infant, the patient had no complications. She was discharged home about 24 hours after delivery, in good condition. (2) Elective induction of labor planned Status: Resolved (3) with 39 completed weeks gestation Status: Resolved Lates Vital Signs Vital Signs Date Time Temp Pulse Resp B/P (MAP) Pulse Ox O2 Delivery O2 Flow Rate FiO2 02/23/18 03:15 97.1 74 16 117/68 (84) Room Air 02/22/18 23:00 94 Weight (Pounds): 270 Result Diagram: 02/23/18 0550 Condition: Improved Discharge: Home, Self Long-Term Meds No Active Prescriptions or Reported Meds Follow up with: Dr. Sandhu [phone] Follow up in: 6 wks PP or PO Discharge Diet: As Tolerates Discharge Activity: As Tolerates Copies to: NASIMA SANDHU MD, MARK F MD Feb 23, 2018 07:47
[2018-02-23 08:00] VITALS: BP 123/66
[2018-02-23] MEDS: DOCUSATE CALCIUM 240 MG CAP PO SCH (08:59)
[2018-02-23] MEDS ORDERED: INFLUENZA VIRUS VAC 0.5 ML SYR IM ONLY ONE (09:00)
[2018-02-23] MEDS ORDERED: MULTIVITAMINS (PRENATAL) TAB PO SCH (09:00)
[2018-02-23 12:20] VITALS: BP 119/68
[2018-02-23 16:40] VITALS: BP 136/66
== END 2018-02-23 17:15 | disposition home or self-care (01) | DRG 775 ==
LOC: OB 05:18
PROVIDERS: ADMIT Obstetrics & Gynecology; ATTEND Obstetrics & Gynecology
PROC: 10E0XZZ Delivery of Products of Conception, External Approach (ICD-10-PCS; principal; 2018-02-22)
PROC: 10907ZC Drainage of Amniotic Fluid, Therapeutic from Products of Conception, Via Natural or Artificial Opening (ICD-10-PCS; 2018-02-22)
PROC: 3E033VJ Introduction of Other Hormone into Peripheral Vein, Percutaneous Approach (ICD-10-PCS; 2018-02-22)
DX: O99.214 Obesity complicating childbirth (principal); E66.9 Obesity, unspecified; Z68.38 Body mass index [BMI] 38.0-38.9, adult; Z37.0 Single live birth; Z3A.39 39 weeks gestation of pregnancy
CPT/HCPCS: 36415; 85025; 85027; 86850; 86900; 86901; J2540; J2590; J3010; J7120

== ENCOUNTER 2018-06-13 19:33 | Emergency (ER) | payer MEDICAID ==
[2018-02-22 06:11] VITALS: Wt 120.7 kg
[~2018-06-13 19:33] MED LIST changes: +IBUP800T37 PO
[2018-06-13] MEDS ORDERED: DIPHTH/TETANUS/ACEL. PERTUSSIS IM ONLY ONE (19:50)
--- NOTE | 2018-06-13 19:51 | ER Report ---
History and Physical Time Seen By MD: 19:47 Hx. of Stated Complaint: PT SLICECD HER THMUB L HAND CUTTING AN AVOCADO HPI/ROS CHIEF COMPLAINT: Cut left thumb HISTORY OF PRESENT ILLNESS: This is a 32 year old female. She has a cut on the left thumb. Cut when cutting an avocado. Bleeding controlled. Needs a tetanus. Very anxious and requesting something to help with the anxiety because scared of needles. No weakness or numbness. Allergies: Coded Allergies: No Known Drug Allergies (Unverified , 09/04/17) Uncoded Allergies: CAT BACTERIA (Allergy, Unknown, 08/04/16) "CAT SCRATCH FEVER" Home Meds Active Scripts Ibuprofen (IBUPROFEN) 800 Mg Tablet, 800 MG PO Q8H, #30 TAB Prov:NASIMA CURRY MD 02/23/18 Reviewed Nurses Notes: Yes Hx Smoking: No Smoking Status: Former Smoker Exposure to Second Hand Smoke?: No Hx Substance Use Disorder: No Hx Alcohol Use: No Constitutional Vital Sign - Last 24 Hours 06/13/18 06/13/18 19:36 20:40 Temp 97.9 Pulse 84 80 Resp 16 16 B/P (MAP) 135/98 101/62 (75) Pulse Ox 95 95 O2 Delivery Room Air Room Air Physical Exam General: Alert, anxious and having some distress. Skin: Tender, 2cm laceration palmar surface of left thumb. Cardiovascular: Normal cap refill. Musculoskeletal: Normal motor function. No tendon compromise. Neuro: normal sensation. Medical Decision Making ED Course/Re-evaluation ED Course Gave Ativan 0.5mg oral dose for anxiety, which helped greatly. Procedure: Laceration Repair Verbal consent from patient after discussing repair options, risks and benefits. Wound cleaned extensively with saline and Hibiclens. Anesthesia: Digital block using 1% lidocaine without epinephrine and 0.5% bupivacaine without epinephrine. Location: Left thumb, palmar surface. Length: 2 cm. Character: Through the skin into the subcutaneous. There were no deep structures involved. No tendon injury was identified. Wound repair: 3 interrupted 5-0 Prolene sutures. The wound repair was simple and performed by myself. Wound care instructions discussed. Sutures need to be removed in 7 days. Tetanus booster given. Decision to Disposition Date: Jun 13, 2018 Decision to Disposition Time: 20:24 Depart Departure Latest Vital Signs Vital Signs Date Time Temp Pulse Resp B/P (MAP) Pulse Ox O2 Delivery O2 Flow Rate FiO2 06/13/18 20:40 80 16 101/62 (75) 95 Room Air 06/13/18 19:36 97.9 Impression: Primary Impression: Laceration Condition: Improved Disposition: HOME OR SELF-CARE Patient Instructions: Laceration (ED) Additional Instructions: Wound Care: Wash the wound once a day with soap and water. Dry the wound and apply a small amount of antibiotic ointment with a clean dressing. If the dressing becomes wet or dirty, repeat cleaning and dressing as above. No soaking the wound; no swimming. Stitches need to be removed in 5-7 days. Pain Control: Use Tylenol or ibuprofen for pain. Using and ice pack can help reduce swelling. It is okay to work, just keep the wound covered and clean and dry as noted above. YEN GREENFIELD MD Jun 13, 2018 19:51
[2018-06-13] MEDS ORDERED: LORazepam 0.5 MG TAB PO ONE (19:55)
[2018-06-13 20:40] VITALS: BP 101/62
== END 2018-06-13 20:40 | disposition home or self-care (01) ==
LOC: ER 19:56
DX: S61.012A Laceration without foreign body of left thumb without damage to nail, initial encounter (principal); W26.0XXA Contact with knife, initial encounter
CPT/HCPCS: 90471; 90715; 99283

== ENCOUNTER 2018-12-30 20:29 | Emergency (ER) | payer MEDICAID ==
[2018-02-22 06:11] VITALS: Wt 113.4 kg
[~2018-12-30 20:29] MED LIST changes: -HYDR-4309 PO; +HYDR-653 PO
[2018-12-30] MEDS ORDERED: ACETAMINOPHEN 325 MG TAB PO ONE (21:00)
--- NOTE | 2018-12-30 21:46 | RADIOLOGY IMAGING REPORT ---
FACILITY: [facility] - [place], [place] PATIENT NAME: Angelina Comer : 1985 MR: [id number] V: [id number] EXAM DATE: ORDERING PHYSICIAN: CICI VINCENT TECHNOLOGIST: Location: Patient: Angelina Comer : 1985 Visit/Account:[id number] Date of Sevice: 12/30/2018 CHEST SINGLE AP Indication: Cough and chest pain x2 days. Comparison: February 16, 2017. Findings: Heart size within normal limits. There is no focal infiltrate or lobar consolidation. No pneumothorax or pleural effusion. IMPRESSION: 1. No acute cardiopulmonary process. Report Dictated By: Henry Paula MD at 12/30/2018 9:41 PM Report E-Signed By: Henry Paula MD at 12/30/2018 9:41 PM WSN:[id number]
[2018-12-30] MEDS ORDERED: OSELTAMIVIR PHOS 75 MG CAP PO ONE (22:25)
[2018-12-30 22:30] VITALS: BP 104/75
[2018-12-30] MEDS ORDERED: OSE75 PO (22:33)
--- NOTE | 2018-12-30 22:35 | ER Report ---
History and Physical Time Seen By MD: 20:40 Hx. of Stated Complaint: PATIENT STATES SHE HAS HAD A COUGH, SINUS CONGESTION, AND OCCASIONAL FEVER FOR ABOUT A WEEK NOW. ALSO REPORTS BEING 11 WEEKS . STATES SHE TOOK SUDAFED 2 HOURS AGO HPI/ROS CHIEF COMPLAINT: Fever, cough, chills HISTORY OF PRESENT ILLNESS: Patient is in late first trimester , presents with 24 hours of fever, chills, cough, shortness breath, sinus congestion. She has multiple sick contacts with flu and has not had her flu shot. She has been taking supportive medications with minimal relief. She is not short of breath but has frequent dry cough. She has myalgias. She has been tolerating fluids and has normal urine output. She denies abdominal pain, cramping, vaginal bleeding or discharge. REVIEW OF SYSTEMS: Respiratory: above Cardiovascular: No chest pain, no palpitations. Gastrointestinal: No vomiting, no abdominal pain. Musculoskeletal: No back pain. Allergies: Coded Allergies: No Known Drug Allergies (Unverified , 12/30/18) Uncoded Allergies: CAT BACTERIA (Allergy, Unknown, 08/04/16) "CAT SCRATCH FEVER" Home Meds Active Scripts Oseltamivir Phosphate (TAMIFLU) 75 Mg Cap, 75 MG PO BID for 5 Days, #10 CAP 0 Refills Prov:CICI VINCENT MD 12/30/18 Ibuprofen (IBUPROFEN) 800 Mg Tablet, 800 MG PO Q8H, #30 TAB Prov:NASIMA CURRY MD 02/23/18 Reviewed Nurses Notes: Yes Hx Smoking: No Smoking Status: Former Smoker Exposure to Second Hand Smoke?: No Hx Substance Use Disorder: No Hx Alcohol Use: No Constitutional Vital Sign - Last 24 Hours 12/30/18 12/30/18 12/30/18 12/30/18 20:47 20:47 20:59 21:00 Temp 99.3 Pulse 94 99 Resp 14 B/P (MAP) 131/85 (100) 131/85 120/82 (95) Pulse Ox 94 93 O2 Delivery Room Air 12/30/18 12/30/18 12/30/18 12/30/18 21:29 21:30 21:35 22:00 Pulse 101 95 B/P (MAP) 116/74 (88) 105/72 (83) Pulse Ox 91 92 12/30/18 12/30/18 22:05 22:30 Pulse 86 B/P (MAP) 104/75 (85) Pulse Ox 90 Physical Exam General Appearance: The patient is alert, has no immediate need for airway protection and no current signs of toxicity. occ dry cough Eyes: Pupils equal and round no injection. Respiratory: Chest is non tender, lungs are clear to auscultation. Cardiac: regular rate and rhythm Gastrointestinal: abdomen slighly distended as expected in Musculoskeletal: Neck: Neck is supple and non tender. Extremities have full range of motion and are non tender. Skin: No rashes or lesions. DIFFERENTIAL DIAGNOSIS: After history and physical exam differential diagnosis was considered for adult fever including but not limited to viral syndromes including influenza, urinary tract infection, pneumonia and sepsis. Medical Decision Making Data Points Laboratory Hematology Test 12/30/18 21:08 Influenza Virus Type A (PCR) Positive (NEGATIVE) Influenza Virus Type B (PCR) Negative (NEGATIVE) Chemistry Test 12/30/18 21:08 Influenza Virus Type A (PCR) Positive (NEGATIVE) Influenza Virus Type B (PCR) Negative (NEGATIVE) ED Course/Re-evaluation ED Course 33-year-old female presents with flulike symptoms. Influenza positive. Given we'll treat with Tamiflu. I discussed risks, benefits, strict return precautions. Patient understands and will return for worsening symptoms. Decision to Disposition Date: Dec 30, 2018 Decision to Disposition Time: 22:33 Depart Departure Latest Vital Signs Vital Signs Date Time Temp Pulse Resp B/P (MAP) Pulse Ox O2 Delivery O2 Flow Rate FiO2 12/30/18 22:30 104/75 (85) 12/30/18 22:05 86 90 12/30/18 20:47 99.3 14 Room Air Impression: Primary Impression: Influenza A Condition: Improved Disposition: HOME OR SELF-CARE New Scripts Oseltamivir Phosphate (TAMIFLU) 75 Mg Cap 75 MG PO BID for 5 Days, #10 CAP 0 Refills Prov: CICI VINCENT MD 12/30/18 Departure Forms: ER Transition Record, Medications Reconciliation, Off Work/School Form, School or Work Release?: Work Number of days to be released: 3 Patient Portal Information Patient Instructions: Influenza (DC) Additional Instructions: As we discussed, please return for difficulty breathing, worsening symptoms, not able to tolerate fluids, or any concerns. Please follow-up with your OB this week for follow up evaluation. CICI VINCENT MD Dec 30, 2018 22:35
== END 2018-12-30 22:43 | disposition home or self-care (01) ==
LOC: ER 20:51
DX: O26.891 Other specified pregnancy related conditions, first trimester (principal); Z3A.11 11 weeks gestation of pregnancy; J11.1 Influenza due to unidentified influenza virus with other respiratory manifestations
CPT/HCPCS: 71045; 87502; 99283

== ENCOUNTER 2019-01-22 12:35 | Emergency (ER) | payer MEDICAID ==
[2018-02-22 06:11] VITALS: Wt 117.9 kg
[~2019-01-22 12:35] MED LIST changes: +OSE75 PO
--- NOTE | 2019-01-22 12:39 | ER Report ---
History and Physical Time Seen By MD: 12:37 HPI/ROS CHIEF COMPLAINT: Abdominal pain HISTORY OF PRESENT ILLNESS: Patient is a 33-year-old female here 12 weeks gestational with complaints of nausea, vomiting, diarrhea, abdominal cramping pains. Pain is diffuse, nonfocal at time of evaluation. Patient has been able to hold down fluids at this time. Denies vaginal bleeding, vaginal discharge, painful urination. Patient is nontoxic in appearance, hemodynamically stable at time of evaluation REVIEW OF SYSTEMS: Constitutional: No fever, no chills. Eyes: No discharge. ENT: No sore throat. Cardiovascular: No chest pain, no palpitations. Respiratory: No cough, no shortness of breath. Gastrointestinal: + Diffuse abdominal pain, + nausea and intermittent vomiting. Genitourinary: No hematuria. Musculoskeletal: No back pain. Skin: No rashes. Neurological: No headache. Allergies: Coded Allergies: No Known Drug Allergies (Unverified , 12/30/18) Uncoded Allergies: CAT BACTERIA (Allergy, Unknown, 08/04/16) "CAT SCRATCH FEVER" Home Meds Active Scripts Oxycodone Hcl/Acetaminophen (PERCOCET 5-325 MG TABLET) 1 Each Tablet, 1 EACH PO Q4H PRN for PAIN, #6 TAB 0 Refills Prov:ODILIA BRAND DO 01/22/19 Ondansetron 4 Mg Odt (ONDANSETRON 4 MG ODT) 4 Mg Tab.rapdis, 4 MG PO ONCE, #20 TAB Prov:ODILIA BRAND DO 01/22/19 Discontinued Scripts Oseltamivir Phosphate (TAMIFLU) 75 Mg Cap, 75 MG PO BID for 5 Days, #10 CAP 0 Refills Prov:CICI VINCENT MD 12/30/18 Ibuprofen (IBUPROFEN) 800 Mg Tablet, 800 MG PO Q8H, #30 TAB Prov:NASIMA CURRY MD 02/23/18 Hx Smoking: No Smoking Status: Former Smoker Exposure to Second Hand Smoke?: No Hx Substance Use Disorder: No Hx Alcohol Use: No Constitutional Vital Sign - Last 24 Hours 01/22/19 01/22/19 01/22/19 01/22/19 12:42 12:44 12:50 13:00 Temp 98.2 Pulse 105 95 Resp 18 B/P (MAP) 101/65 (77) 101/65 110/72 (85) Pulse Ox 94 95 O2 Delivery Room Air 01/22/19 01/22/19 01/22/19 01/22/19 13:05 13:20 13:30 13:35 Pulse 95 89 89 B/P (MAP) 115/73 (87) Pulse Ox 97 92 90 01/22/19 01/22/19 01/22/19 01/22/19 13:50 14:00 14:05 14:20 Pulse 90 89 97 B/P (MAP) 109/74 (86) Pulse Ox 89 93 89 01/22/19 01/22/19 01/22/19 01/22/19 14:25 14:30 14:40 14:55 Pulse 91 89 111 B/P (MAP) 111/70 (84) Pulse Ox 91 92 92 01/22/19 01/22/19 15:00 15:16 Temp 99.3 B/P (MAP) 112/72 (85) Intake and Output 01/22/19 01/22/19 01/23/19 15:00 23:00 07:00 Intake Total 1000 ml Balance 1000 ml Physical Exam General Appearance: The patient is alert, has no immediate need for airway protection and no signs of toxicity. No Acute distress Eyes: Pupils equal and round no pallor or injection. ENT, Mouth: Mucous membranes are moist. Respiratory: There are no retractions, lungs are clear to auscultation. Cardiovascular: Regular rate and rhythm. Gastrointestinal: Diffuse mild abdominal pain, no distention, rebound or guarding. Neurological: No focal neurological findings at time of evaluation Skin: Warm and dry, no rashes. Musculoskeletal: Neck is supple non tender. Extremities are nontender, nonswollen and have full range of motion. DIFFERENTIAL DIAGNOSIS: After history and physical exam differential diagnosis was considered for abdominal pain including but not limited to appendicitis, cholecystitis, gastritis and urinary tract infection, miscarriage Medical Decision Making Data Points Result Diagram: 01/22/19 1258 01/22/19 1258 Laboratory Hematology Test 01/22/19 00:00 01/22/19 12:40 01/22/19 12:58 01/22/19 13:15 Human Chorionic Gonadotropin, Quant 92961 mIU/ml Urine Color Yellow Urine Clarity Clear Urine pH 5.0 pH (4.8-9.5) Urine Specific [place] 1.029 Urine Protein Negative mg/dL (NEGATIVE) Urine Glucose (UA) Negative mg/dL (NEGATIVE) Urine Ketones 80 mg/dL (NEGATIVE) Urine Blood Negative (NEGATIVE) Urine Nitrite Negative (NEGATIVE) Urine Bilirubin Negative (NEGATIVE) Urine Urobilinogen Negative mg/dL (0.2-1.9) Urine Leukocyte Esterase Negative (NEGATIVE) Urine RBC None /HPF (0-2/HPF) Urine WBC 1 /HPF (0-5/HPF) Urine Squamous Epithelial Cells Many /LPF (</=FEW) Urine Bacteria Negative /HPF (NONE-FEW) Urine Mucus Few /HPF (NONE-FEW) Red Blood Count 5.18 M/uL (4.17-5.56) Mean Corpuscular Volume 78.3 fL (80.0-96.0) Mean Corpuscular Hemoglobin 26.0 pg (26.0-33.0) Mean Corpuscular Hemoglobin Concent 33.2 g/dL (32.0-36.0) Red Cell Distribution Width 15.9 % (11.5-14.5) Mean Platelet Volume 9.3 fL (7.2-11.1) Neutrophils (%) (Auto) 92.1 % (39.4-72.5) Lymphocytes (%) (Auto) 3.3 % (17.6-49.6) Monocytes (%) (Auto) 3.7 % (4.1-12.4) Eosinophils (%) (Auto) 0.6 % (0.4-6.7) Basophils (%) (Auto) 0.3 % (0.3-1.4) Nucleated RBC Relative Count (auto) 0.0 /100WBC Neutrophils # (Auto) 8.7 K/uL (2.0-7.4) Lymphocytes # (Auto) 0.3 K/uL (1.3-3.6) Monocytes # (Auto) 0.4 K/uL (0.3-1.0) Eosinophils # (Auto) 0.1 K/uL (0.0-0.5) Basophils # (Auto) 0.0 K/uL (0.0-0.1) Nucleated RBC Absolute Count (auto) 0.00 K/uL Peripheral Blood Smear No Y/N Sodium Level 137 mmol/L (137-145) Potassium Level 3.7 mmol/L (3.5-5.0) Chloride Level 105 mmol/L (98-107) Carbon Dioxide Level 21 mmol/L (22-31) Blood Urea Nitrogen 9 mg/dl (7-18) Creatinine 0.60 mg/dl (0.52-1.04) Glomerular Filtration Rate Calc > 60.0 Random Glucose 97 mg/dl (75-110) Calcium Level 8.6 mg/dl (8.4-10.2) Total Bilirubin 0.9 mg/dl (0.2-1.3) Aspartate Amino Transf (AST/SGOT) 15 U/L (0-35) Alanine Aminotransferase (ALT/SGPT) 21 U/L (0-56) Alkaline Phosphatase 79 U/L (0-126) Total Protein 7.1 g/dl (6.3-8.2) Albumin 3.9 g/dl (3.5-5.0) Lipase 160 U/L (23-300) Influenza Virus Type A (PCR) Negative (NEGATIVE) Influenza Virus Type B (PCR) Negative (NEGATIVE) Chemistry Test 01/22/19 00:00 01/22/19 12:40 01/22/19 12:58 01/22/19 13:15 Human Chorionic Gonadotropin, Quant 26918 mIU/ml Urine Color Yellow Urine Clarity Clear Urine pH 5.0 pH (4.8-9.5) Urine Specific [place] 1.029 Urine Protein Negative mg/dL (NEGATIVE) Urine Glucose (UA) Negative mg/dL (NEGATIVE) Urine Ketones 80 mg/dL (NEGATIVE) Urine Blood Negative (NEGATIVE) Urine Nitrite Negative (NEGATIVE) Urine Bilirubin Negative (NEGATIVE) Urine Urobilinogen Negative mg/dL (0.2-1.9) Urine Leukocyte Esterase Negative (NEGATIVE) Urine RBC None /HPF (0-2/HPF) Urine WBC 1 /HPF (0-5/HPF) Urine Squamous Epithelial Cells Many /LPF (</=FEW) Urine Bacteria Negative /HPF (NONE-FEW) Urine Mucus Few /HPF (NONE-FEW) White Blood Count 9.5 k/uL (4.5-11.0) Red Blood Count 5.18 M/uL (4.17-5.56) Hemoglobin 13.5 g/dL (12.0-16.0) Hematocrit 40.6 % (34.0-47.0) Mean Corpuscular Volume 78.3 fL (80.0-96.0) Mean Corpuscular Hemoglobin 26.0 pg (26.0-33.0) Mean Corpuscular Hemoglobin Concent 33.2 g/dL (32.0-36.0) Red Cell Distribution Width 15.9 % (11.5-14.5) Platelet Count 150 K/uL (150-450) Mean Platelet Volume 9.3 fL (7.2-11.1) Neutrophils (%) (Auto) 92.1 % (39.4-72.5) Lymphocytes (%) (Auto) 3.3 % (17.6-49.6) Monocytes (%) (Auto) 3.7 % (4.1-12.4) Eosinophils (%) (Auto) 0.6 % (0.4-6.7) Basophils (%) (Auto) 0.3 % (0.3-1.4) Nucleated RBC Relative Count (auto) 0.0 /100WBC Neutrophils # (Auto) 8.7 K/uL (2.0-7.4) Lymphocytes # (Auto) 0.3 K/uL (1.3-3.6) Monocytes # (Auto) 0.4 K/uL (0.3-1.0) Eosinophils # (Auto) 0.1 K/uL (0.0-0.5) Basophils # (Auto) 0.0 K/uL (0.0-0.1) Nucleated RBC Absolute Count (auto) 0.00 K/uL Peripheral Blood Smear No Y/N Glomerular Filtration Rate Calc > 60.0 Calcium Level 8.6 mg/dl (8.4-10.2) Total Bilirubin 0.9 mg/dl (0.2-1.3) Aspartate Amino Transf (AST/SGOT) 15 U/L (0-35) Alanine Aminotransferase (ALT/SGPT) 21 U/L (0-56) Alkaline Phosphatase 79 U/L (0-126) Total Protein 7.1 g/dl (6.3-8.2) Albumin 3.9 g/dl (3.5-5.0) Lipase 160 U/L (23-300) Influenza Virus Type A (PCR) Negative (NEGATIVE) Influenza Virus Type B (PCR) Negative (NEGATIVE) Urinalysis Test 01/22/19 12:40 Urine Color Yellow Urine Clarity Clear Urine pH 5.0 pH (4.8-9.5) Urine Specific [place] 1.029 Urine Protein Negative mg/dL (NEGATIVE) Urine Glucose (UA) Negative mg/dL (NEGATIVE) Urine Ketones 80 mg/dL (NEGATIVE) Urine Blood Negative (NEGATIVE) Urine Nitrite Negative (NEGATIVE) Urine Bilirubin Negative (NEGATIVE) Urine Urobilinogen Negative mg/dL (0.2-1.9) Urine Leukocyte Esterase Negative (NEGATIVE) Urine RBC None /HPF (0-2/HPF) Urine WBC 1 /HPF (0-5/HPF) Urine Squamous Epithelial Cells Many /LPF (</=FEW) Urine Bacteria Negative /HPF (NONE-FEW) Urine Mucus Few /HPF (NONE-FEW) EKG/Imaging Imaging Location: [facility] [place] Patient: Angelina Comer : 1985 Visit/Account:[id number] Date of Sevice: 01/22/2019 OB Ultrasound < 14 weeks Additional Pertinent history: Abdominal pain and cramping. COMPARISON STUDIES: None relevant FINDINGS: Gestational sac: intrauterine and unremarkable Yolk sac: Not visualized pole: Visualized cardiac activity: 154 bpm Estimated gestational age: 12 weeks and 4 days based on average [place]-rump length Estimated gestational age based on LMP datin weeks and 1 day VELMA: 08/02/2019 based on today's ultrasound age Subchorionic hemorrhage: none Uterus: gravid, otherwise negative Maternal ovaries: Suboptimally visualized. There is a simple appearing cyst within the right ovary measuring up to to 0.6 cm. Otherwise negative. Adnexa: No adnexal mass lesion or focal abnormality. Free pelvic fluid: none IMPRESSION: 1. Single live early intrauterine gestation with estimated gestational age of 12 weeks and 4 days. 2. Small right ovarian cyst measuring up to 2.6 cm. ED Course/Re-evaluation ED Course Patient is a 33-year-old female here with complaints of diffuse abdominal pain, diarrhea, intermittent nausea and vomiting. Patient has been able to keep down by mouth fluids. Patient is 12 weeks gestational with prior history of miscarriage, 10 pregnancies and total with 6 living children. Transvaginal ultrasound confirmed a viable at this time. Patient's labs were unremarkable, influenza was negative. Patient was given IV fluids for hydration as she was noted to have significant ketones in the urine. Urine was noninfectious. Patient was given scripts for Percocet for pain control, Zofran for symptomatic treatment. Recommend close follow-up with [facility]. Return precautions provided. Decision to Disposition Date: Jan 22, 2019 Decision to Disposition Time: 14:58 Depart Departure Latest Vital Signs Vital Signs Date Time Temp Pulse Resp B/P (MAP) Pulse Ox O2 Delivery O2 Flow Rate FiO2 01/22/19 15:16 99.3 01/22/19 15:00 112/72 (85) 01/22/19 14:55 111 92 01/22/19 12:44 18 Room Air Impression: Primary Impression: Abdominal pain during Condition: Improved Disposition: HOME OR SELF-CARE New Scripts Oxycodone Hcl/Acetaminophen (PERCOCET 5-325 MG TABLET) 1 Each Tablet 1 EACH PO Q4H PRN for PAIN, #6 TAB 0 Refills Prov: ODILIA BRAND DO 01/22/19 Ondansetron 4 Mg Odt (ONDANSETRON 4 MG ODT) 4 Mg Tab.rapdis 4 MG PO ONCE, #20 TAB Prov: ODILIA BRAND DO 01/22/19 Patient Instructions: Abdominal Pain in (ED) Additional Instructions: Please drink plenty of water. You may take 1 Zofran every 4-6 hours as needed for nausea and vomiting. Please follow up closely with your [facility]. You may take 1 Percocet every 6-8 hours as needed for severe abdominal pain. Please return if you develop fevers, worsening abdominal pain, inability to keep down food or fluids. ODILIA BRAND DO Jan 22, 2019 12:39
[2019-01-22] MEDS ORDERED: NS(*) 0.9% 1000 ML BAG 1,000 ML IV ONE (12:55)
[2019-01-22] MEDS ORDERED: ONDANSETRON 4 MG/2 ML VIAL IVP ONE (12:55)
[2019-01-22 13:09] LABS: PLATELET COUNT, AUTOMATED 150 K/uL (150-450)
--- NOTE | 2019-01-22 14:39 | RADIOLOGY IMAGING REPORT ---
FACILITY: [facility] PATIENT NAME: Angelina Comer : 1985 MR: [id number] V: [id number] EXAM DATE: ORDERING PHYSICIAN: ODILIA BRAND TECHNOLOGIST: Location: [facility] [place] Patient: Angelina Comer : 1985 Visit/Account:[id number] Date of Sevice: 01/22/2019 OB Ultrasound < 14 weeks Additional Pertinent history: Abdominal pain and cramping. COMPARISON STUDIES: None relevant FINDINGS: Gestational sac: intrauterine and unremarkable Yolk sac: Not visualized pole: Visualized cardiac activity: 154 bpm Estimated gestational age: 12 weeks and 4 days based on average [place]-rump length Estimated gestational age based on LMP datin weeks and 1 day VELMA: 08/02/2019 based on today's ultrasound age Subchorionic hemorrhage: none Uterus: gravid, otherwise negative Maternal ovaries: Suboptimally visualized. There is a simple appearing cyst within the right ovary m easuring up to to 0.6 cm. Otherwise negative. Adnexa: No adnexal mass lesion or focal abnormality. Free pelvic fluid: none IMPRESSION: 1. Single live early intrauterine gestation with estimated gestational age of 12 weeks and 4 days. 2. Small right ovarian cyst measuring up to 2.6 cm. Report Dictated By: Henry Paula MD at 01/22/2019 2:32 PM Report E-Signed By: Henry Paula MD at 01/22/2019 2:34 PM WSN:[email or web address]
[2019-01-22] MEDS ORDERED: oxyCODONE/ACETAMIN 5/325MG TH 2 TAB/BOTTLE PO ONE (14:55)
[2019-01-22 15:00] VITALS: BP 112/72
[2019-01-22] MEDS ORDERED: ONDA4TAB9 PO (15:03)
[2019-01-22] MEDS ORDERED: OXYC-865 PO (15:03)
== END 2019-01-22 15:13 | disposition home or self-care (01) ==
LOC: ER 12:44
DX: O26.891 Other specified pregnancy related conditions, first trimester (principal); O21.9 Vomiting of pregnancy, unspecified; Z3A.12 12 weeks gestation of pregnancy
CPT/HCPCS: 76817; 81001; 83690; 84702; 85025; 87502; 96361; 96374; 99284; J2405; J7030; 82040; 82247; 82310; 82374; 82435; 82565; 82947; 84075; 84132; 84155; 84295; 84450; 84460; 84520

== ENCOUNTER 2019-03-09 12:39 | Emergency (ER) | payer MEDICAID ==
[2018-02-22 06:11] VITALS: Wt 121.6 kg
[~2019-03-09 12:39] MED LIST changes: +ONDA4TAB9 PO; +OXYC-865 PO
--- NOTE | 2019-03-09 12:58 | ER Report ---
History and Physical Time Seen By MD: 12:51 Hx. of Stated Complaint: PATIENT STATES SHE WOKE UP SMALL DIME SIZED BREUISE ON LEFT WRIST. BRUISE GOT LARGER THROUGHOUT THE DAY. DENIES PAIN. DOES NOT REMEMBER HITING IT. DEC ROM IN LEFT THUMB HPI/ROS CHIEF COMPLAINT: Left wrist pain HISTORY OF PRESENT ILLNESS: This is a 33-year-old female presents to emergency department for left wrist pain. Patient states when she woke up this morning she noticed a bruise and some discomfort to her left wrist along the distal radius. No known injuries, it is mildly painful to touch, there is some mild bruising. Patient was unsure what happened and therefore decided to come in for an evaluation. No fevers or chills. No nausea or vomiting. She is 18 and 5 weeks . is going well so far, no complications. REVIEW OF SYSTEMS: Respiratory: No cough, no dyspnea. Cardiovascular: No chest pain, no palpitations. Gastrointestinal: No vomiting, no abdominal pain. Musculoskeletal: As above. Allergies: Coded Allergies: No Known Drug Allergies (Unverified , 03/09/19) Uncoded Allergies: CAT BACTERIA (Allergy, Unknown, 08/04/16) "CAT SCRATCH FEVER" Home Meds Discontinued Scripts Oxycodone Hcl/Acetaminophen (PERCOCET 5-325 MG TABLET) 1 Each Tablet, 1 EACH PO Q4H PRN for PAIN, #6 TAB 0 Refills Prov:ODILIA BRAND DO 01/22/19 Ondansetron 4 Mg Odt (ONDANSETRON 4 MG ODT) 4 Mg Tab.rapdis, 4 MG PO ONCE, #20 TAB Prov:ODILIA BRAND DO 01/22/19 Past Medical/Surgical History The patient has a past medical and surgical history of herniated umbilicus 5 years old, urinary tract infections, G10, P6, wears glasses. Reviewed Nurses Notes: Yes Hx Smoking: No Smoking Status: Former Smoker Exposure to Second Hand Smoke?: No Hx Substance Use Disorder: No Hx Alcohol Use: No Constitutional Vital Sign - Last 24 Hours 03/09/19 03/09/19 12:43 13:00 Temp 98.2 Pulse 92 93 Resp 16 B/P (MAP) 120/72 114/66 (82) Pulse Ox 94 94 O2 Delivery Room Air Physical Exam General Appearance: The patient is alert, has no immediate need for airway protection and no current signs of toxicity. Eyes: Pupils equal and round no injection. Respiratory: Chest is non tender, lungs are clear to auscultation. Cardiac: regular rate and rhythm. Gastrointestinal: Abdomen is soft and non tender, no masses, bowel sounds normal. Musculoskeletal: Neck: Neck is supple and non tender. Extremities mild distal radial pain of the left wrist, small contusion, no erythema or cellulitic appearance. CMS intact, no crepitus, no deformities. Skin: No rashes or lesions. DIFFERENTIAL DIAGNOSIS: After history and physical exam differential diagnosis was considered for contusion, cellulitis, ganglion cyst. Medical Decision Making EKG/Imaging Imaging Location: [facility] Patient: Angelina Comer : 1985 Visit/Account:[id number] Date of Sevice: 03/09/2019 EXAMINATION: Left wrist 3 views HISTORY: Pain and bruising. COMPARISON: None. FINDINGS: No evidence of acute fracture or dislocation about the left wrist. Normal alignment. Joint spaces are preserved. Soft tissues are unremarkable. IMPRESSION: Negative left wrist. Report Dictated By: Hosea Arenas MD at 03/09/2019 1:27 PM Report E-Signed By: Hosea Arenas MD at 03/09/2019 1:29 PM WSN:[email or web address] ED Course/Re-evaluation ED Course The patient was admitted to room. A history and physical were obtained. Differential diagnoses were considered. An x-ray of the left wrist was negative. A review the results with the patient, I did tell her this is likely a contusion, perhaps injured it unknowingly in the last couple of days service the small amount of bruising, I did tell her there is no sign of infection however continue to monitor closely, she is placed in an Rafat wrap, recommended following up with the wound and children's clinic next week for reevaluation. Patient expressed understanding was agreeable with this plan care and discharged home. Decision to Disposition Date: Mar 09, 2019 Decision to Disposition Time: 13:41 Depart Departure Latest Vital Signs Vital Signs Date Time Temp Pulse Resp B/P (MAP) Pulse Ox O2 Delivery O2 Flow Rate FiO2 03/09/19 13:00 93 114/66 (82) 94 03/09/19 12:43 98.2 16 Room Air Impression: Primary Impression: Contusion of left wrist Condition: Improved Disposition: HOME OR SELF-CARE Patient Instructions: Contusion in Adults (ED) Additional Instructions: Use the Rafat wrap for comfort. Continue to monitor closely for any signs of infection such as increased redness, swelling or increased pain. Take Tylenol as needed for pain. Follow-up with the women's clinic next week for reevaluation if no improvement. Return to ER for any concerns or worsening symptoms. Problem Qualifiers Primary Impression: Contusion of left wrist Encounter type: initial encounter Qualified Codes: S60.212A - Contusion of left wrist, initial encounter LYLA BRIGGS LABORER [employer]-BC Mar 09, 2019 12:58
[2019-03-09 13:00] VITALS: BP 114/66
--- NOTE | 2019-03-09 13:33 | RADIOLOGY IMAGING REPORT ---
FACILITY: [facility] - [place] PATIENT NAME: Angelina Comer : 1985 MR: [id number] V: [id number] EXAM DATE: ORDERING PHYSICIAN: LYLA BRIGGS TECHNOLOGIST: Location: [facility] Patient: Angelina Comer : 1985 Visit/Account:[id number] Date of Sevice: 03/09/2019 EXAMINATION: Left wrist 3 views HISTORY: Pain and bruising. COMPARISON: None. FINDINGS: No evidence of acute fracture or dislocation about the left wrist. Normal alignment. Joint spaces a re preserved. Soft tissues are unremarkable. IMPRESSION: Negative left wrist. Report Dictated By: Hosea Arenas MD at 03/09/2019 1:27 PM Report E-Signed By: Hosea Arenas MD at 03/09/2019 1:29 PM WSN:[email or web address]
== END 2019-03-09 13:50 | disposition home or self-care (01) ==
LOC: ER 12:51
DX: S60.212A Contusion of left wrist, initial encounter (principal)
CPT/HCPCS: 99283